=== PATIENT | female | born 1990 | race Caucasian/White ===

== ENCOUNTER 2016-10-29 04:46 | Outpatient (CLI) | payer BC, OTHER ==
[~2016-10-29] VITALS: Ht 165.1 cm; Wt 76.4 kg
[2016-10-29] VITALS (8 sets, daily range): BP systolic 99–124; BP diastolic 50–77; PULSE 64–78; TEMP 97.8–97.9
[2016-10-29] MEDS ORDERED: PRENATAL (05:06)
[2016-10-29 05:59] LABS: BASO % 0.3 % (0.0-2.0); EOS % 0.2 % (0-4.0); GRAN # 10.5 (1.4-6.5); GRAN % 88.6 % (42.2-75.2); HEMATOCRIT 41.4 % (37.0-47.0); HEMOGLOBIN 14.3 g/dl (12.5-16.0); LYMPH # 0.7 (1.2-3.4); LYMPH % 5.7 % (20.0-51.0); MEAN CELL VOLUME 95 fl (80.0-100.0); MEAN CORPUSCULAR HEMOGLOBIN 33 pg (27.0-31.0); MEAN CORPUSCULAR HGB CONC 35 g/dl (33.0-37.0); MEAN PLATELET VOLUME 9.4 fl (7.4-10.4); MONO # 0.6 (0.1-0.6); MONO % 4.7 % (1.7-9.3); PLATELET COUNT 214 K/mm3 (130-400); RED BLOOD COUNT 4.36 M/mm3 (4.10-5.30); WHITE BLOOD COUNT 11.9 K/mm3 (4.8-10.8)
[2016-10-29 06:58] LABS: COLLECTION METHOD CLEAN CATCH
[2016-10-29 07:03] LABS: MUCOUS Present /lpf; PH 5 (5-8); SQUAMOUS EPITHELIAL 0-2 /hpf; URINE APPEARANCE Hazy; URINE BACTERIA None Seen /hpf; URINE BILIRUBIN Negative (NEGATIVE); URINE BLOOD Negative (NEGATIVE); URINE COLOR Yellow; URINE GLUCOSE Negative (NEGATIVE); URINE KETONE 2+ (NEGATIVE); URINE LEUKOCYTE ESTERASE Negative (NEGATIVE); URINE PROTEIN(semi-quant) 1+ (NEGATIVE); URINE RBC 0-2 /hpf; URINE UROBILINOGEN Negative (NEGATIVE)
[2016-10-29 07:05] LABS: ADJUSTED CALCIUM 8.9 mg/dL (8.4-10.2); ALBUMIN 3.9 gm/dL (3.5-5.0); BILIRUBIN,TOTAL 0.8 mg/dL (0.0-1.0); CALCIUM 8.8 mg/dL (8.4-10.2); CREATININE, serum 0.75 mg/dL (0.52-1.25); POTASSIUM 4.2 mmol/L (3.4-5.0); TOTAL PROTEIN 7.2 gm/dL (6.4-8.2)
== END 2016-10-29 08:45 | disposition home or self-care (01) ==
LOC: LDRO 04:46
PROVIDERS: Student in an Organized Health Care Education/Training Program
DX: O21.9 Vomiting of pregnancy, unspecified (principal); R11.2 Nausea with vomiting, unspecified; Z3A.00 Weeks of gestation of pregnancy not specified
CPT/HCPCS: J2405; J7120

== ENCOUNTER 2016-12-10 00:37 | Inpatient (IN) | payer BC, OTHER ==
[2016-12-10] VITALS (32 sets, daily range): BP systolic 116–150; BP diastolic 65–771; PULSE 49–133; TEMP 97.8–98.3
[~2016-12-10] VITALS: Ht 165.1 cm; Wt 77.3 kg
[~2016-12-10 00:37] MED LIST: PRENATAL
[2016-12-10 04:27] LABS: BASO # 0.1 (0.0-0.2); BASO % 0.5 % (0.0-2.0); EOS # 0.1 (0.0-0.7); EOS % 0.4 % (0-4.0); GRAN # 9.3 (1.4-6.5); GRAN % 68.8 % (42.2-75.2); HEMATOCRIT 38.7 % (37.0-47.0); HEMOGLOBIN 13.4 g/dl (12.5-16.0); LYMPH # 3.4 (1.2-3.4); LYMPH % 24.8 % (20.0-51.0); MEAN CELL VOLUME 93 fl (80.0-100.0); MEAN CORPUSCULAR HEMOGLOBIN 32 pg (27.0-31.0); MEAN CORPUSCULAR HGB CONC 35 g/dl (33.0-37.0); MEAN PLATELET VOLUME 10.5 fl (7.4-10.4); MONO # 0.7 (0.1-0.6); MONO % 5.1 % (1.7-9.3); PLATELET COUNT 251 K/mm3 (130-400); RED BLOOD COUNT 4.17 M/mm3 (4.10-5.30); REDCELL DISTRIBUTION WIDTH-CV 13.1 % (11.5-14.5); WHITE BLOOD COUNT 13.5 K/mm3 (4.8-10.8)
[2016-12-11 01:00] VITALS: BP 127/78; PULSE 56; TEMP 98
[2016-12-11 04:15] VITALS: BP 125/74; PULSE 54; TEMP 97.9
[2016-12-11 07:38] VITALS: BP 118/73; PULSE 57; TEMP 98.3
[2016-12-11] MEDS ORDERED: MOTRIN 800800 MG/TAB PO (08:25)
[2016-12-11 12:40] VITALS: BP 122/71; PULSE 55; TEMP 98
[2016-12-11 19:55] VITALS: BP 130/95; PULSE 66; TEMP 98
[2016-12-12 07:39] VITALS: BP 130/77; PULSE 60; TEMP 98.2
== END 2016-12-12 12:00 | disposition home or self-care (01) | DRG 775 ==
LOC: LDRO 00:37 → OB 03:35 → LDR 03:35 → OB 16:19
PROVIDERS: Obstetrics & Gynecology
PROC: 10E0XZZ Delivery of Products of Conception, External Approach (ICD-10-PCS; principal; 2016-12-10)
PROC: 0KQM0ZZ Repair Perineum Muscle, Open Approach (ICD-10-PCS; 2016-12-10)
DX: O48.0 Post-term pregnancy (principal); O99.824 Streptococcus B carrier state complicating childbirth; O70.1 Second degree perineal laceration during delivery; Z3A.40 40 weeks gestation of pregnancy; Z37.0 Single live birth
CPT/HCPCS: J2540; J2590; J2795; J7120

== ENCOUNTER → 2020-08-30 | Outpatient (CLI) | payer OTHER ==
[~2020-08-30] MED LIST changes: +BREASTPUMP MC; +MOTRIN 800800 MG/TAB PO; +VALTREX 50500 MG/TAB PO; +ZOLOFT 50MG50 MG PO
== END ==
LOC: ZCOL.LAB 08:00
DX: Z20.822 Contact with and (suspected) exposure to COVID-19 (principal)

== ENCOUNTER 2020-09-06 18:57 | Inpatient (IN) | payer OTHER ==
[~2020-09-06] VITALS: Ht 165.1 cm; Wt 81.4 kg
[2020-09-06] VITALS (15 sets, daily range): BP systolic 112–141; BP diastolic 74–91; PULSE 64–148; TEMP 98.2
[~2020-09-06 18:57] MED LIST changes: -BREASTPUMP MC; -VALTREX 50500 MG/TAB PO; -ZOLOFT 50MG50 MG PO
--- NOTE | 2020-09-06 19:05 | NUR ---
Pt arrived on unit escorted by and with complaints of contractions every "couple" minutes for the last couple hours. Pt denies any leaking of fluid or vaginal bleeding and reports normal movement. EFM and toco monitor started. SVE by this RN 3-/-2. Plan of care for labor assessment reviewed.
--- NOTE | 2020-09-06 19:56 | NUR ---
1951 - This RN to bedside and found patient in bathroom with visibly rupture membranes and appears to be bearing down. Encouraged to get back into bed. Dr. Manuel called for delivery. 1954 - Nursery RN and charge nurse notified. US on with FHR in 110's. Pt pushing with contractions, encouraged to continue to breath. Rupture of forebag with meconium fluid. 1955 - Dr. Manuel in room, delivery of viable girl on bed. Cord clamped x [address] Manuel. Care of infant assumed to ANGIE Moore. No IV at this time. Verbal orders from Dr. Manuel to not give pitocin at this time and monitor bleeding. 1999 - Spontaneous delivery of placenta. No perineal lacerations needed per Dr. Manuel. Fundal massage initiated, small to moderate amount of bleeding noted, fundus firm and down 1 from umbilicus. Verbal orders from Dr. Manuel to continue to monitor. Pericare provided. New chux beneath patient. Pt positioned in bed for comfort. Post recovery started.
[2020-09-06] MEDS ORDERED: VALTREX 50500 MG/TAB PO (21:08)
[2020-09-06] MEDS ORDERED: ZOLOFT 50MG50 MG PO (21:08)
[2020-09-06 21:21] LABS: BASO # 0.1 (0.0-0.2); BASO % 0.4 % (0.0-2.0); EOS % 0.1 % (0-4.0); GRAN # 13.9 (1.4-6.5); HEMOGLOBIN 12.1 g/dl (12.5-16.0); LYMPH # 1.8 (1.2-3.4); LYMPH % 10.9 % (20.0-51.0); MEAN CELL VOLUME 91 fl (80.0-100.0); MEAN CORPUSCULAR HEMOGLOBIN 32 pg (27.0-31.0); MEAN CORPUSCULAR HGB CONC 35 g/dl (33.0-37.0); MEAN PLATELET VOLUME 10.5 fl (7.4-10.4); MONO # 0.9 (0.1-0.6); MONO % 5.1 % (1.7-9.3); PLATELET COUNT 278 K/mm3 (130-400); RED BLOOD COUNT 3.83 M/mm3 (4.10-5.30); REDCELL DISTRIBUTION WIDTH-CV 12.4 % (11.5-14.5)
[2020-09-06 21:34] LABS: HEMATOCRIT 34.7 % (37.0-47.0)
[2020-09-06] MEDS ORDERED: MOTRIN 800800 MG/TAB PO (22:27)
--- NOTE | 2020-09-06 22:27 | NUR ---
1955 OF FEMALE INFANT, MEC FLUID NOTED, INFANT BULD SUCTIONED, DRIED AND STIMULATED BY DR GAITAN, CORD CLAMPED AND CUT AND TO RADIENT WARMER FOR ASSESSMENT. VITAL SIGNS STABLE, BANDS APPLIED, APGARS 7-8-9
--- NOTE | 2020-09-06 22:30 | NUR ---
2029 - Uterus boggy with initial massage, expulsion of few small clots and uterus firming up. Chux changed beneath patient. 2114 - Uterus remains boggy with initial check but improves with massage. Chux pad changed beneath patient. 2214 - Uterus boggy with initial check and small clot appears to be at vaginal opening. Upon examination membranes appear to be coming out of vagina. Fundal massage continued, fundus firm with massage but clot and membranes remain at vaginal opening. Dr. Manuel notified, see physician notification. 2247 - Dr. Manuel at bedside. Toradol given to patient for pain control, see MAR. Pt positioned in footplates and procedure explained. Dr. Manuel able to remove multiple large pieces of membrane with ring forceps and banjo curette. Pt vital signs remain stable and pt tolerates procedure well. 2299 - Pericare provided. New chux beneath patient. Pt repositioned in bed for comfort.
--- NOTE | 2020-09-06 23:50 | NUR ---
Pt able to ambulate to bathroom with standby assistance. Pt able to void 100 mL bloody urine. Pericare explained and provided. Mesh panties and peripad applied. New gown on. Pt transferred to room 214 by wheelchair with belongings.
[2020-09-07 04:30] VITALS: BP 122/78; PULSE 75; TEMP 98.2
[2020-09-07 07:11] LABS: HEMATOCRIT 28.1 % (37.0-47.0); HEMOGLOBIN 9.7 g/dl (12.5-16.0)
[2020-09-07 07:15] VITALS: BP 125/91; PULSE 68; TEMP 98.5
--- NOTE | 2020-09-07 10:20 | NUR ---
Initial visit; Parents thanked Prototype Engineer Manager for offering congratulations and God's blessings for the of their daughter. Prototype Engineer Manager thanked family for choosing [facility].
[2020-09-07 10:35] VITALS: BP 115/72; PULSE 90; TEMP 98.6
[2020-09-07 15:05] VITALS: BP 117/73; PULSE 79; TEMP 98.2
[2020-09-07 20:30] VITALS: BP 116/67; PULSE 92; TEMP 98.6
[2020-09-08 08:00] VITALS: BP 116/81; PULSE 73; TEMP 98.4
[2020-09-08] MEDS ORDERED: BREASTPUMP MC (10:35)
[2020-09-08 15:45] VITALS: BP 114/68; PULSE 91; TEMP 98.3
== END 2020-09-08 16:10 | disposition home or self-care (01) | DRG 797 ==
LOC: LDRO 18:57 → OB 20:15 → LDR 20:15 → OB 09-07 00:15
PROVIDERS: Obstetrics & Gynecology; ADMIT Obstetrics & Gynecology
PROC: 10E0XZZ Delivery of Products of Conception, External Approach (ICD-10-PCS; principal; 2020-09-06)
PROC: 10D17ZZ Extraction of Products of Conception, Retained, Via Natural or Artificial Opening (ICD-10-PCS; 2020-09-06)
DX: O99.824 Streptococcus B carrier state complicating childbirth (principal); O98.32 Other infections with a predominantly sexual mode of transmission complicating childbirth; Z37.0 Single live birth; A60.00 Herpesviral infection of urogenital system, unspecified; O72.0 Third-stage hemorrhage; O69.81X0 Labor and delivery complicated by cord around neck, without compression, not applicable or unspecified; Z3A.39 39 weeks gestation of pregnancy
CPT/HCPCS: J0690; J1885; J2210; J2590